=== PATIENT | female | born 1960 | race Caucasian/White ===

== ENCOUNTER 2018-02-06 17:35 | Observation (INO) | payer BC ==
[2018-02-06] MEDS ORDERED: NS 0.9% 1000 ML* 1,000 ML IV ONE ×2 (18:06→20:14)
--- NOTE | 2018-02-06 18:53 | RAD ---
. INDICATION: Sepsis. Single frontal view of the chest performed at 1815 hours was reviewed. No prior study is available for comparison. No mediastinal shift is noted. Heart is of normal size and configuration. Lung estes appear clear. IMPRESSION: NO ACTIVE CARDIOPULMONARY DISEASE IS NOTED.
[2018-02-06 18:55] LABS: ABS Basophils 0 10^3/ul (0-0.2); ABS Eosinophils 0 10^3/ul (0-0.6); ABS Lymphocytes 0.4 10^3/ul (1.0-4.8); ABS Monocytes 0.3 10^3/ul (0-0.8); ABS Neutrophils 6.9 10^3/ul (1.5-7.7); ABS Nucleated RBC 0 10^3/ul; Eosinophil % 0.1 % (0-6); Hematocrit 41 % (35-47); Hemoglobin 13.7 g/dl (12.0-16.0); Lymphocyte % 5.4 % (25-47); Mean Corpuscular HGB Conc 34 g/dl (31-36); Mean Corpuscular Hemoglobin 31 pg (27-31); Mean Corpuscular Volume 91 fL (80-97); Mean Platelet Volume 8.2 um3 (7.4-10.4); Nucleated Red Blood Cells % 0; Platelet Count 274 10^3/ul (150-450); Red Cell Distribution Width 14 % (10.5-15); White Blood Count 7.6 10^3/ul (3.5-10.8)
[2018-02-06 19:13] LABS: EGFR Non-African American 82.8 (>60)
[2018-02-06] MEDS ORDERED: Ketorolac INJ* 30 MG/ML 1 ML VIAL IV PUSH ONE (19:47)
[2018-02-06] MEDS ORDERED: Acetaminophen TAB* 325 MG ONE (20:01)
[2018-02-06 20:02] LABS: Urine Appearance Cloudy; Urine Blood 1+ (Negative); Urine Color Yellow; Urine Ketones 2+ (Negative); Urine Protein 2+(100 mg/dL) (Negative); Urine Specific Gravity 1.018 (1.010-1.030); Urine Urobilinogen Positive (Negative)
[2018-02-06] MEDS ORDERED: Acetaminophen TAB* 325 MG PO ONE (20:14)
[2018-02-06] MEDS ORDERED: cefTRIAXone(*) 1 GM in NS 0.9% 50 ML* 50 ML IVPB ONE (21:02)
[2018-02-06] MEDS ORDERED: Piperacillin/Tazobac ADVAN(*) 3.375 GM in NS 0.9% 100 ML* 100 ML IVPB ONE (21:11)
[2018-02-06] MEDS ORDERED: cefTRIAXone(*) 1 GM ADVAN/BAG ONE (21:17)
[2018-02-06] MEDS ORDERED: NS 0.9% 500 ML* 500 ML IV ONE (21:34)
--- NOTE | 2018-02-06 22:06 | RAD ---
Indication: Back pain. CT of the abdomen and pelvis was performed without oral or IV contrast administration. Coronal and sagittal reconstructed images were obtained. The lung bases demonstrate no pleural fluid, nodules or masses. Heart is of normal size without evidence of pericardial effusion. The liver is normal in size. It is diffusely decreased in density consistent with hepatic steatosis. The gallbladder demonstrates no calcified gallstones. No pericholecystic fluid or wall thickening is identified. Pancreas demonstrates no mass or pancreatic duct dilatation. There is a calcification in the head of the pancreas. The spleen is normal in size. No adrenal masses are noted. The kidneys demonstrates no hydronephrosis or hydroureter. No retroperitoneal lymphadenopathy is noted. Aorta demonstrates no evidence of aneurysm. No pelvic adenopathy is noted. CT of the pelvis demonstrates myomatous changes of the uterus. The ovaries are otherwise unremarkable. No dilated loops of bowel are noted. No hernias are noted. The urinary bladder is otherwise unremarkable. Disc space narrowing at L4-L5 and L5-S1 noted. No other lytic lesions are noted. IMPRESSION: No obstructive uropathy is noted. Myomatous changes of the uterus are noted. Hepatic steatosis with calcification in the pancreatic head may represent prior pancreatitis. Degenerative disc disease at L4-L5 and L5-S1.
[2018-02-06] MEDS ORDERED: Acetaminophen TAB* 325 MG PO PRN (22:07)
[2018-02-06] MEDS ORDERED: Al Hydrox/Mg Hydrox/Simet LIQ* 30 ML UDC PO PRN (22:07)
--- NOTE | 2018-02-06 22:31 | ED ---
Seth Mantilla Natalie, scribed for Sigifredo Moore MD on 02/06/18 at 1813 . HPI Febrile Illness - HPI Summary HPI Summary: The patient is a 57 y/o F presenting to [facility] c/o intermittent fevers starting lasting into today, with a max temp of over 103F. The pain is rated 5/10 in severity. Yesterday she noticed a small bite on the back of her right knee that is itchy. She additionally c/o fatigue, body aches, nonproductive cough, headaches, nausea, and loss of appetite. She has been taking Tylenol and Advil to relieve her pain. She visited [facility] yesterday, where she was prescribed Doxycycline. She had a CXR taken yesterday, but the results were negative. - History of Current Complaint Chief Complaint: EDFever Time Seen by Provider: 02/06/18 17:51 Hx Obtained From: Patient Onset/Duration: Started Days Ago, Still Present Timing: Constant, Lasting Days Initial Severity: Moderate Current Severity: Moderate Pain Intensity: 5 Pain Scale Used: 0-10 Numeric Aggravating Factors: Nothing Alleviating Factors: Other: - Tylenol, Advil Associated Signs and Symptoms: Cough - nonproductive, Dizziness, Headache, Nausea, Other: - body aches, fatigue, fever, loss of appetite, low back pain, small bite on back of right knee - Allergy/Home Medications Allergies/Adverse Reactions: Allergies Allergy/AdvReac Type Severity Reaction Status Date / Time No Known Allergies Allergy Verified 02/06/18 17:53 Home Medications: Home Medications DOXYcycline CAP(*) [DOXYcycline 100MG CAP(*)] 100 mg PO BID 02/06/18 [History Confirmed 02/06/18] PMH/Surg Hx/FS Hx/Imm Hx Opthamlomology History: Denies: Hx Legally Blind EENT History: Denies: Hx Deafness - Cancer History Hx Chemotherapy: No Hx Radiation Therapy: No Infectious Disease History: No Infectious Disease History: Denies: Traveled Outside the [place] in Last 30 Days - Family History Known Family History: Negative: Renal Disease - Social History Alcohol Use: None Substance Use Type: Reports: None Smoking Status (MU): Heavy Every Day Tobacco Smoker Review of Systems Positive: Fever, Fatigue, Other - body aches, dizziness Positive: Cough Gastrointestinal: Other - loss of appetite Positive: Nausea Positive: Other - lower back pain Positive: Other - bite on back of right knee Positive: Headache All Other Systems Reviewed And Are Negative: Yes Physical Exam - Summary Physical Exam Summary: Appearance: The patient is well-nourished in no acute distress and in no acute pain. Skin: The skin is warm and diaphoretic and skin color reflects adequate perfusion. There is a small erythematous area in a crescent shape on the right popliteal fossa. HEENT: The head is normocephalic and atraumatic. The pupils are equal and reactive. The conjunctivae are clear and without drainage. Nares are patent and without drainage. Mouth reveals moist mucous membranes and the throat is without erythema and exudate. The external ears are intact. The ear canals are patent and without drainage. The tympanic membranes are intact. Neck: The neck is supple with full range of motion and non-tender. There are no carotid bruits. There is no neck vein distension. Respiratory: Chest is non-tender. Lungs are clear to auscultation and breath sounds are symmetrical and equal. Cardiovascular: Heart is tachycardic rate and rhythm. There is no murmur or rub auscultated. There is no peripheral edema and pulses are symmetrical and equal. Abdomen: The abdomen is soft and non-tender. There are normal bowel sounds heard in all four quadrants and there is no organomegaly palpated. Musculoskeletal: There is no back tenderness noted. Extremities are non-tender with full range of motion. There is good capillary refill. There is no peripheral edema or calf tenderness elicited. Neurological: Patient is alert and oriented to person, place and time. The patient has symmetrical motor strength in all four extremities. Cranial nerves are grossly intact. Deep tendon reflexes are symmetrical and equal in all four extremities. Psychiatric: The patient has an appropriate affect and does not exhibit any anxiety or depression. Triage Information Reviewed: Yes Vital Signs On Initial Exam: Initial Vitals Temp Pulse Resp BP Pulse Ox 98.9 F 134 19 155/71 95 02/06/18 17:35 02/06/18 17:35 02/06/18 17:35 02/06/18 17:35 02/06/18 17:35 Vital Signs Reviewed: Yes Diagnostics - Vital Signs Vital Signs Temp Pulse Resp BP Pulse Ox 02/06/18 17:35 98.9 F 134 19 155/71 95 - Laboratory Lab Results: Lab Results 02/06/18 02/06/18 02/06/18 Range/Units 18:28 18:28 18:29 WBC 7.6 (3.5-10.8) 10^3/ul RBC 4.50 (4.00-5.40) 10^6/ul Hgb 13.7 (12.0-16.0) g/dl Hct 41 (35-47) % MCV 91 (80-97) fL MCH 31 (27-31) pg MCHC 34 (31-36) g/dl RDW 14 (10.5-15) % Plt Count 274 (150-450) 10^3/ul MPV 8.2 (7.4-10.4) um3 Neut % (Auto) 90.6 H (38-83) % Lymph % (Auto) 5.4 L (25-47) % Erath % (Auto) 3.4 (0-7) % Eos % (Auto) 0.1 (0-6) % Baso % (Auto) 0.5 (0-2) % Absolute Neuts (auto) 6.9 (1.5-7.7) 10^3/ul Absolute Lymphs (auto) 0.4 L (1.0-4.8) 10^3/ul Absolute Monos (auto) 0.3 (0-0.8) 10^3/ul Absolute Eos (auto) 0 (0-0.6) 10^3/ul Absolute Basos (auto) 0 (0-0.2) 10^3/ul Absolute Nucleated RBC 0 10^3/ul Nucleated RBC % 0 Sodium 133 L (135-145) mmol/L Potassium 3.8 (3.5-5.0) mmol/L Chloride 100 L (101-111) mmol/L Carbon Dioxide 23 (22-32) mmol/L Anion Gap 10 (2-11) mmol/L BUN 8 (6-24) mg/dL Creatinine 0.73 (0.51-0.95) mg/dL Est GFR ( Amer) 100.2 (>60) Est GFR (Non-Af Amer) 82.8 (>60) BUN/Creatinine Ratio 11.0 (8-20) Glucose 133 H (70-100) mg/dL Lactic Acid 1.3 (0.5-2.0) mmol/L Calcium 9.1 (8.6-10.3) mg/dL Total Bilirubin 0.60 (0.2-1.0) mg/dL AST 39 (13-39) U/L ALT 63 H (7-52) U/L Alkaline Phosphatase 71 (34-104) U/L C-Reactive Protein 183.93 H (<8.01) mg/L Total Protein 6.8 (6.4-8.9) g/dL Albumin 3.7 (3.2-5.2) g/dL Globulin 3.1 (2-4) g/dL Albumin/Globulin Ratio 1.2 (1-3) Urine Color Urine Appearance Urine pH (5-9) Ur Specific Harlan (1.010-1.030) Urine Protein (Negative) Urine Ketones (Negative) Urine Blood (Negative) Urine Nitrate (Negative) Urine Bilirubin (Negative) Urine Urobilinogen (Negative) Ur Leukocyte Esterase (Negative) Urine WBC (Auto) (Absent) Urine RBC (Auto) (Absent) Ur Squamous Epith Cells (Absent) Urine Bacteria (Absent) Urine Glucose (Negative) 02/06/18 Range/Units 19:47 WBC (3.5-10.8) 10^3/ul RBC (4.00-5.40) 10^6/ul Hgb (12.0-16.0) g/dl Hct (35-47) % MCV (80-97) fL MCH (27-31) pg MCHC (31-36) g/dl RDW (10.5-15) % Plt Count (150-450) 10^3/ul MPV (7.4-10.4) um3 Neut % (Auto) (38-83) % Lymph % (Auto) (25-47) % Erath % (Auto) (0-7) % Eos % (Auto) (0-6) % Baso % (Auto) (0-2) % Absolute Neuts (auto) (1.5-7.7) 10^3/ul Absolute Lymphs (auto) (1.0-4.8) 10^3/ul Absolute Monos (auto) (0-0.8) 10^3/ul Absolute Eos (auto) (0-0.6) 10^3/ul Absolute Basos (auto) (0-0.2) 10^3/ul Absolute Nucleated RBC 10^3/ul Nucleated RBC % Sodium (135-145) mmol/L Potassium (3.5-5.0) mmol/L Chloride (101-111) mmol/L Carbon Dioxide (22-32) mmol/L Anion Gap (2-11) mmol/L BUN (6-24) mg/dL Creatinine (0.51-0.95) mg/dL Est GFR ( Amer) (>60) Est GFR (Non-Af Amer) (>60) BUN/Creatinine Ratio (8-20) Glucose (70-100) mg/dL Lactic Acid (0.5-2.0) mmol/L Calcium (8.6-10.3) mg/dL Total Bilirubin (0.2-1.0) mg/dL AST (13-39) U/L ALT (7-52) U/L Alkaline Phosphatase (34-104) U/L C-Reactive Protein (<8.01) mg/L Total Protein (6.4-8.9) g/dL Albumin (3.2-5.2) g/dL Globulin (2-4) g/dL Albumin/Globulin Ratio (1-3) Urine Color Yellow Urine Appearance Cloudy Urine pH 6.0 (5-9) Ur Specific Harlan 1.018 (1.010-1.030) Urine Protein 2+(100 mg/dl) A (Negative) Urine Ketones 2+ A (Negative) Urine Blood 1+ A (Negative) Urine Nitrate Negative (Negative) Urine Bilirubin Negative (Negative) Urine Urobilinogen Positive A (Negative) Ur Leukocyte Esterase Negative (Negative) Urine WBC (Auto) Trace(0-5/hpf) (Absent) Urine RBC (Auto) 2+(6-10/hpf) A (Absent) Ur Squamous Epith Cells Present A (Absent) Urine Bacteria Absent (Absent) Urine Glucose Negative (Negative) Result Diagrams: 02/06/18 18:28 02/06/18 18:28 Lab Statement: Any lab studies that have been ordered have been reviewed, and results considered in the medical decision making process. - Radiology CXR Xray Interpretation: No Acute Changes - No active cardiopulmonary disease is noted. ED physician has reviewed this report. Radiology Interpretation Completed By: Radiologist - CT Abd/Pel CT CT Interpretation: Positive (See Comments) - No obstructive uropathy is noted. Myomatous changes of the uterus are noted. Hepatic steatosis with calcification in the pancreatic head may represent prior pancreatitis. Degenerative disc disease at L4-L5 and L5-S1. ED physician has reviewed this report. CT Interpretation Completed By: Radiologist Course/Dx - Course Course Of Treatment: Ms. Scott was nontoxic in appearance on her arrival at the emergency department but reported fevers, generalized joint pain and a rash on her right leg. There was a concern for Lyme and she was started on doxycycline yesterday. She was tachycardic and admitted she hadn't been drinking well and had been having fevers. She was hydrated well labs were checked and found to be generally unremarkable aside from an elevated CRP. IV fluids did not improve her tachycardia and she spiked a fever up to 103 here in the emergency department. At that point she met septic criteria and antibiotics were ordered for her and Dr. Stevens was contacted for admission. - Diagnoses Provider Diagnoses: Sepsis - Provider Notifications Discussed Care Of Patient With: Yolanda Jesus Time Discussed With Above Provider: 21:00 - Dr. Jesus [place] [facility] [place] Instructed by Provider To: Admit As Inpatient - Critical Care Time Critical Care Time: 30-74 min Discharge - Sign-Out/Discharge Documenting (check all that apply): Discharge/Admit/Transfer - Pt [place] be [place] [facility] [place] the care of Dr. Jesus. - Discharge Plan Condition: Stable Disposition: ADMITTED TO [facility] Referrals: Frederick Larsen MD [Primary Care Provider] - - Billing Disposition and Condition Condition: STABLE Disposition: Admitted to [facility] The documentation as recorded by the Seth knapp Natalie accurately reflects the service I personally performed and the decisions made by , Sigifredo Moore MD.
[2018-02-06] MEDS ORDERED: Enoxaparin(*) 40 MG/0.4 ML SYR SUBCUT SCH (23:00)
[2018-02-06] MEDS ORDERED: Zosyn per Pharmacy* NOTE FOLLOW UP SCH (23:00)
[2018-02-07] MEDS ORDERED: Piperacillin/Tazobac ADVAN(*) 3.375 GM in NS 0.9% 100 ML* 100 ML IVPB SCH (02:00)
--- NOTE | 2018-02-07 04:25 | HP ---
AMENDED REPORT NOW INCLUDES COSIGNER DESIGNATION - ESIGNED BEFORE ADJUSTMENTS CC: Dr. Larsen * ADMISSION HISTORY AND PHYSICAL: DATE OF ADMISSION: 02/06/18 PROVIDER: Yolanda Jesus NP PRIMARY CARE PROVIDER: Dr. Larsen. ATTENDING PHYSICIAN WHILE IN THE HOSPITAL: Dr. Lance Stevens *(report dictated by Yolanda Jesus NP) CHIEF COMPLAINT: Fever. HISTORY OF PRESENT ILLNESS: Ms. Scott is a 57-year-old female with past medical history significant for chronic lower back lower who presented to the emergency room after complaining of fever, generalized fatigue, and decreased appetite since . The patient reports that she just feels achy all over. She complains of a headache. She reports that she was seen at [facility] on Thursday for the same symptoms and was noted to have a rash/ possible insect bite on the right posterior knee. She was started on doxycycline 100 mg p.o. b.i.d. Today, she continued with fever and not feeling any improvement of her symptoms, so she presented to the emergency room for further evaluation. She does report that she has had a cough x2 weeks that has been nonproductive. She also reports a recent exposure to possible influenza. She denies any chest pain, shortness of breath, or hemoptysis. She denies any edema. She denies any nausea, vomiting, or diarrhea. Denies any hematuria or dysuria. Denies any dysphagia. Denies any lesions. She denies any anxiety or psychosis. She does report a rash to the right posterior knee. She does complain of generalized body aches and a nonproductive cough x 2 weeks and fever since . She also complains of lower back pain that is a chronic lower back pain unchanged. While in the emergency room, she had routine lab work drawn. WBCs were within normal limits at 7.6. Neutrophils were 90.6 and lymphs were 5.4. Sodium was 133 , chloride was 100, glucose was 133, lactic acid was 1.3. ALTs were 63. C- reactive protein was 183.93. Urine was negative for bacteria. The patient did have documented fever in the emergency room of 103.8. Given her symptoms and meeting SIRS criteria, we were asked to evaluate her for admission. PAST MEDICAL HISTORY: Significant for back pain. PAST SURGICAL HISTORY: Appendectomy. HOME MEDICATIONS: Current home medication is doxycycline 100 mg p.o. b.i.d. ALLERGIES TO MEDICATION: No known drug allergies. FAMILY HISTORY: Mother with a history of an MT at age 55. Brother with a history of diabetes. No reported history of cancer. SOCIAL HISTORY: She does report that she smokes one pack of cigarettes daily. She denies any alcohol or illicit drug use. She is . Surrogate decision maker in the event she is unable to make her own decisions is her , Hector Edmond, his phone number is [phone]. She is a full code. REVIEW OF SYSTEMS: There was a documented fever of 103.8. She denies any significant weight change. She does report some decreased appetite since . There has been no ear discharge. No vision changes. No rhinorrhea. Denies any sore throat. Denies any chest pain. Denies any orthopnea or nocturnal dyspnea. Denies any shortness of breath or hemoptysis. She does report a nonproductive cough x 2 weeks. She denies any abdominal pain, nausea, vomiting, or diarrhea. She denies any hematuria or dysuria, urinary frequency or urgency. She denies any focal weakness or sensory loss. She denies any visual complaints. She denies any dysphagia. She does report generalized body aches and fatigue. Denies any open sores. She does report a rash to the right posterior knee that started yesterday. A review of 14 systems was completed and all others were negative. PHYSICAL EXAMINATION GENERAL: At this time, Ms. Scott is a 57-year-old female, she appears in no acute distress, resting on the stretcher in the emergency room. She does appear to be mildly fatigued. VITAL SIGNS: Blood pressure was 135/79, heart rate was 108, respirations were 20, O2 saturation on room air was 96%, temperature was 98.2. She did have a T- max of 103.8. HEENT: Head is atraumatic and normocephalic. Eyes: EOMs are intact. Sclerae anicteric and not pale. Oral mucosa appears to be moist. NECK: Supple. There is no nuchal rigidity noted. She is able to touch her chin to her chest. LUNGS: Clear to auscultation bilaterally. There are no wheezes, rales, or rhonchi. CARDIAC: S1, S2. Regular rate and rhythm. There is no murmurs, rubs, or gallops. ABDOMEN: Soft and nontender. Bowel sounds are active x4. EXTREMITIES: Pulses are +2 throughout. She is able to move all 4 extremities with 5/5 strength. NEUROLOGIC: She is awake, alert, and oriented x4. Speech is clear. Tongue is midline. There are no focal deficits. SKIN: She does have an erythema to the right posterior knee with localized center with darker rd discoloration. There is no streaking. DIAGNOSTIC STUDIES AND LABORATORY DATA: WBCs were 7.6, RBCs 4.50, hemoglobin was 13.7, hematocrit was 41, neutrophils were 90.6, lymphs were 5.4, platelet count was 274. Sodium 133, potassium 3.8, chloride 100, carbon dioxide was 23, anion gap was 10, BUN was 8, creatinine 0.73, lactic acid was 1.3, glucose 133. ALTs were 63. C- reactive protein was 183.93. Urine was yellow cloudy, pH was 6, specific gravity was 1.018, urine protein was 2+, urine ketones were 2+, urine blood was 1+, urine nitrites were negative, bilirubin was negative, urobilinogen was positive, urine leukocyte esterase was negative, wbc's were trace, urine rbc's were 2+, urine squamous epithelial cells were present, bacteria was absent, glucose was negative. Influenza A and B were negative. Chest x-ray showed no active cardiopulmonary disease. She has a CT of the abdomen and pelvis, radiologist's impression: No obstructive uropathy is noted. Myomatous changes of the uterus are noted. Calcification in the pancreatic head may represent prior pancreatitis. Degenerative disk disease at L4-L5 and L5-S1. There is disk space narrowing at L4- L5 and L5-S1 noted. There were no lytic lesions. ASSESSMENT AND PLAN: Ms. Scott is a 57-year-old female with a past medical history significant for chronic lower back pain, who presented to the emergency room with the fever since . The patient states that she was seen and evaluated at [facility] and placed on doxycycline for a rash behind her right posterior knee with darkened discoloration to the center of the rash. We were asked to see and evaluate her due to fever and meeting SIRS criteria for severe sepsis. She will be admitted under observation for: 1. Fever. Unknown origin at this time. Her urinalysis was negative for bacteria and negative for nitrites. She did have +1 blood and +2 protein but only trace wbc's were found in the urine. Chest x-ray showed no acute disease. The patient does report cough x2 weeks. I will repeat a chest x-ray in the morning. The patient does meet SIRS criteria with tachypnea, respiratory rate between 20 and 22, tachycardia with the heart rate of 104 to 126 and a fever of 103.8. She did receive hydration for a total of 2500 cc in the emergency room, which is equivalent to 30 mL/kg. We will repeat a lactic acid at midnight. She will have a repeat CBC and BMP in the a.m. I suspect that her fever could possibly be related to a viral infection. I have very low suspicion that her fever is related to her right posterior knee rash as this is mild at this time. The patient does report recent exposure to possible influenza. The patient was tested for influenza in the emergency room, which was negative. 2. Right posterior knee rash. I will continue her on doxycycline to cover for Lyme at this time. 3. Chronic back pain. The patient can take Tylenol as needed for her chronic back pain. She does report lower back pain with palpation to the spine and to bilateral SI joints. 4. FEN: She can have a regular diet. 5. Code status: She is full code. 6. DVT prophylaxis: I will place her on Lovenox subcutaneous daily. TIME SPENT: Time spent on this admission was approximately 60 minutes, greater than half of that time was spent [id number] with the patient obtaining my history and physical, the other half of the time was spent going over my plan of care and implementing my plan of care. I have discussed this with my attending, Dr. Lance Stevens and he is in agreement with my plan. YOLANDA CEFERINO, CLOTH DYE RANGE OPERATOR [id number]/[facility] #: [id number] BRETT
[2018-02-07 07:36] LABS: EGFR Non-African American 96.3 (>60)
[2018-02-07 08:15] LABS: ABS Basophils 0 10^3/ul (0-0.2); ABS Eosinophils 0 10^3/ul (0-0.6); ABS Monocytes 0.4 10^3/ul (0-0.8); ABS Neutrophils 3.7 10^3/ul (1.5-7.7); ABS Nucleated RBC 0 10^3/ul; Eosinophil % 0.5 % (0-6); Hematocrit 39 % (35-47); Hemoglobin 13.2 g/dl (12.0-16.0); Lymphocyte % 19.2 % (25-47); Mean Corpuscular HGB Conc 34 g/dl (31-36); Mean Corpuscular Hemoglobin 30 pg (27-31); Mean Corpuscular Volume 90 fL (80-97); Mean Platelet Volume 8.7 um3 (7.4-10.4); Nucleated Red Blood Cells % 0.2; Platelet Count 254 10^3/ul (150-450); Red Blood Count 4.35 10^6/ul (4.00-5.40); Red Cell Distribution Width 14 % (10.5-15); White Blood Count 5.1 10^3/ul (3.5-10.8)
--- NOTE | 2018-02-07 08:44 | PN ---
Subjective Date of Service: 02/07/18 Interval History: Ms. Scott reports feeling much better today. She has had no further fever since admission. She is less achy and is tolerating oral intake again. She denies nausea or vomiting and has a good appetite. She further denies chest pain, SOB, or abdominal pain. Objective Active Medications: Acetaminophen (Tylenol Tab*) 650 mg PO Q4H PRN Doxycycline Hyclate (Vibramycin Cap(*)) 100 mg PO BID GENEVIEVE Enoxaparin Sodium (Lovenox(*)) 40 mg SUBCUT Q24H GENEVIEVE Piperacillin Sod/Tazobactam (Sod 3.375 gm/ Sodium Chloride) 100 mls @ 25 mls/ hr IVPB Q8H [facility] Pharmacy Consult (Zosyn Per Pharmacy*) 1 note FOLLOW UP .ZOSYN PER PHARMACY [facility] Vital Signs: Temp Pulse Resp BP Pulse Ox 98.0 F 104 16 145/74 97 02/07/18 03:40 02/07/18 03:40 02/07/18 03:40 02/07/18 03:40 02/07/18 07:59 Oxygen Devices in Use Now: None Appearance: Female sitting up eating lunch in NAD Eyes: No Scleral Icterus Ears/Nose/Mouth/Throat: Mucous Membranes Moist Neck: Trachea Midline Respiratory: Symmetrical Chest Expansion and Respiratory Effort, Clear to Auscultation Cardiovascular: NL Sounds; No Murmurs; No JVD, No Edema Abdominal: NL Sounds; No Tenderness; No Distention Lymphatic: No Cervical Adenopathy Extremities: No Edema Skin: - - Small area of erythema to popliteal aspect of left knee, approx 4 inches long by 1/2 inch wide, not consistent with erythema migrans Neurological: Alert and Oriented x 3, NL Muscle Strength and Tone Nutrition: Taking PO's Result Diagrams: 02/07/18 06:45 02/07/18 06:40 Additional Lab and Data: . Microbiology and Other Data: . Assess/Plan/Problems-Billing Assessment: Ms. Scott is a 57 yo female with a PMH of chronic back pain who was admitted on 02/06/18 with fever of unknown origin, on doxycycline outpatient for ? bug bite to posterior knee. - Patient Problems (1) Fever Comment: - Afebrile since admission. - Chest xray negative, UA negative, blood cultures with NGTD. Suspect viral illness, possible tick borne illness. Lyme serology pending. - Continue doxycycline for suspected lyme given ? of bite to posterior knee, monitor serology results. (2) DVT prophylaxis Comment: - Lovenox. (3) Full code status Comment: Status and Disposition: OBV. Discharge to home.
[2018-02-07] MEDS ORDERED: DOXYcycline CAP(*) 100 MG PO SCH (09:00)
--- NOTE | 2018-02-07 09:48 | RAD ---
Indication: Fever. 2 views of the chest including dual energy PA views demonstrates no mediastinal shift. Heart is of normal size and configuration. Lung estes show no pleural fluid, pneumonia or pneumothorax. No changes noted since February 06, 2018. IMPRESSION: No active cardiopulmonary disease is noted.
[2018-02-07 11:28] VITALS: BP 114/66
--- NOTE | 2018-02-07 21:14 | DS ---
CC: Dr. Larsen * [facility] MEDICINE DISCHARGE SUMMARY: DATE OF ADMISSION: 02/06/18 DATE OF DISCHARGE: 02/07/18 PRIMARY CARE PHYSICIAN: Dr. Larsen. ATTENDING PHYSICIAN: Bruce Hawthorne MD * (dictation provided by Tanna Barnes NP). PRIMARY DIAGNOSIS: Fever unknown etiology, question acute viral illness versus Lyme disease. SECONDARY DIAGNOSIS: Chronic back pain. MEDICATIONS AT THE TIME OF DISCHARGE: Doxycycline 100 mg p.o. b.i.d. HOSPITAL COURSE: Ms. Scott is a 57-year-old female with no significant past medical history who presented to the hospital on 02/06/18 with concern for fever. Please see the dictated H and P from Yolanda Jesus NP for complete details. In brief, the patient states she started feeling very unwell on and described fever, fatigue and decreased appetite. The patient felt unwell on Thursday as well. She noted at that time that there seemed to be a bite or an itchy area behind her right knee. She went to [facility] for evaluation at which time she was started on doxycycline. The patient states she continued to feel quite unwell on Thursday with a fever as high as 103.8 and came to the emergency room here for evaluation. In the emergency room, Ms. Scott had a CT of the abdomen and pelvis, which showed "no obstructive uropathy is noted. Myomatous changes of the uterus are noted. Hepatic steatosis with calcification in the pancreatic head may represent prior pancreatitis. Degenerative disk disease at L4-L5 and L5-S1." She had a chest x- ray which showed no active cardiopulmonary disease is noted. She had labs that showed no leukocytosis. Her lymphocytes were 5.4. Her neutrophils were 90.6. She had a very mild hyponatremia with a sodium of 133. Her CRP was 183.93. Her urine showed no evidence of infection with negative WBC , negative bacteria, and negative nitrites. She did have 2+ blood and 2+ protein in the urine. Influenza swabs were negative. Ms. Scott has done well since she has been admitted to the hospital. She only had one fever at the time of her admission and has been afebrile since then. She states she is much less achy and is feeling better overall. She reports now having a good strong appetite and tolerating breakfast and lunch well. Ms. Scott is medically stable for discharge to home. Our workup here has been negative for any bacterial illness. We did send Lyme serology and that is pending. The patient will continue on doxycycline to complete a course and treatment of Lyme disease, pending review of serologies by her primary care physician. I suspect the patient likely had a viral illness and indicates she is doing much better today and is medically stable for discharge to home. DISPOSITION: To home. DIET: Regular. ACTIVITY: As tolerated. FOLLOWUP PLANS: Please follow up with Dr. Larsen in the next 4 to 7 days regarding this acute observation stay in the hospital. TIME SPENT: Approximately 60 minutes were spent on the discharge of this patient, more than half of that time spent with her at the bedside reviewing the events leading up to this hospitalization and during this hospitalization, performing the physical examination, and reviewing my plan of care. TANNA BARNES, MARYANNE [id number]/CPS #: [id number]
== END 2018-02-07 13:04 | disposition home or self-care (01) ==
LOC: ED 17:35 → MED 22:07
PROVIDERS: ADMIT Hospitalist; ATTEND Student in an Organized Health Care Education/Training Program
DX: R50.9 Fever, unspecified (principal); M54.5 Low back pain; G89.29 Other chronic pain; R53.83 Other fatigue; R51 Headache; Z79.899 Other long term (current) drug therapy; F17.210 Nicotine dependence, cigarettes, uncomplicated; R21 Rash and other nonspecific skin eruption
CPT/HCPCS: 36415; 71045; 71046; 74176; 80048; 80053; 81003; 81015; 83605; 85025; 86140; 86617; 86618; 87040; 87086; 87476; 87502; 87798; 96365; 96372; 96375; 99284; 99406; A9270-GY; G0378; J0696; J1650; J1885; J2543